=== PATIENT | female | born 1995 | race Caucasian/White ===

== ENCOUNTER 2018-02-06 09:26 | Emergency (ER) | payer OTHER ==
[2018-02-06] MEDS: IBUPROFEN 200 MG TAB PO (10:55)
[2018-02-06] MEDS: HYDROCODONE/APAP (5/325) TAB PO (10:55)
== END 2018-02-06 12:02 | disposition home or self-care (01) ==
LOC: FTE 09:26
DX: D17.21 Benign lipomatous neoplasm of skin and subcutaneous tissue of right arm (principal)
CPT/HCPCS: 76536; 99284-25

== ENCOUNTER 2018-04-28 11:25 | Day surgery (SDC) | payer OTHER ==
[2018-04-28] MEDS: BUPIVACAINE 0.25%/EPI (SDV) 30 ML INJ INJ ×2 (15:15)
[2018-04-28] MEDS ORDERED: BUPIVACAINE 0.25%/EPI (SDV) 30 ML INJ (15:18)
[2018-04-28] MEDS ORDERED: PROPOFOL 20 ML (15:24)
[2018-04-28] MEDS ORDERED: LIDOCAINE 2% (SDV) 5 ML INJ (15:24)
[2018-04-28] MEDS ORDERED: FENTAnyl 50 MCG/ML VIAL (15:25)
[2018-04-28] MEDS ORDERED: CEFAZOLIN 1 GM INJ (15:25)
[2018-04-28] MEDS ORDERED: METOCLOPRAMIDE 10 MG INJ (15:25)
[2018-04-28] MEDS ORDERED: ONDANSETRON 4 MG INJ (15:25)
[2018-04-28] MEDS ORDERED: ACETAMINOPHEN 325 MG TAB PO (15:30)
[2018-04-28] MEDS ORDERED: ONDANSETRON 4 MG INJ IV ×2 (15:30→16:30)
[2018-04-28] MEDS ORDERED: DIPHENHYDRAMINE 50 MG INJ IV (16:30)
[2018-04-28] MEDS ORDERED: OXYCODONE/ACETAMINOPHEN (5/325) TAB PO ×2 (16:30)
[2018-04-28] MEDS ORDERED: MEPERIDINE 25 MG INJ IV (16:30)
[2018-04-28] MEDS ORDERED: MIDAZOLAM 1 MG/ML 2 ML INJ IV (16:30)
[2018-04-28] MEDS ORDERED: METOCLOPRAMIDE 10 MG INJ IV (16:30)
[2018-04-28] MEDS ORDERED: FENTAnyl 50 MCG/ML VIAL IV ×3 (16:30)
[2018-04-28] MEDS: morphine 2 MG INJ IV (17:00)
[2018-04-28] MEDS: HYDROCODONE/APAP (5/325) TAB PO (17:17)
[2018-04-28] MEDS ORDERED: ROPIVACAINE 0.5 % 30 ML VIAL (18:02)
== END 2018-04-28 18:07 | disposition home or self-care (01) ==
LOC: SDS 11:25
DX: R22.31 Localized swelling, mass and lump, right upper limb (principal)
CPT/HCPCS: 11406; 88307

== ENCOUNTER 2018-08-03 09:22 | Emergency (ER) | payer OTHER ==
[2018-08-03] MEDS: ONDANSETRON (ODT) 4 MG TAB ODT (10:41)
[2018-08-03] MEDS: KETOROLAC 30 MG INJ IM (10:46)
[2018-08-03] MEDS: ACETAMINOPHEN 325 MG TAB PO (10:46)
== END 2018-08-03 11:16 | disposition home or self-care (01) ==
LOC: FTE 09:22
DX: R50.9 Fever, unspecified (principal); R11.10 Vomiting, unspecified
CPT/HCPCS: 81025; 96372; 99284-25